=== PATIENT | male | born 1955 | race Caucasian/White ===

== ENCOUNTER → 2016-05-27 | Outpatient (CLI) | payer OTHER | END | disposition home or self-care (01) | LOC: SPEC 17:19 → EEVIPCON 17:19 | PROVIDERS: ATTEND Nurse Practitioner Family | DX: R07.9 Chest pain, unspecified (principal) | CPT/HCPCS: 36415; 84484 ==

== ENCOUNTER → 2017-08-12 | Outpatient (CLI) | payer OTHER | END | disposition home or self-care (01) | LOC: SPEC 14:36 | DX: R07.9 Chest pain, unspecified (principal); I11.0 Hypertensive heart disease with heart failure; I50.9 Heart failure, unspecified | CPT/HCPCS: 36415; 84484 ==

== ENCOUNTER → 2017-08-14 | Outpatient (CLI) | payer OTHER ==
[2017-08-14 14:52] LABS: BASO # 0.1 x10^3/uL (0.0-0.2); BASO % 1 % (0-3); EOS # 0.2 x10^3/uL (0.0-0.7); EOS % 3 % (0-3); HEMATOCRIT 45.9 % (39.0-53.0); HEMOGLOBIN 15.3 g/dL (13.0-17.5); LYMPH # 2.6 x10^3/uL (1.0-4.8); LYMPH % 30 % (24-48); MEAN CORPUSCULAR HEMOGLOBIN 28 pg (25-35); MEAN CORPUSCULAR HGB CONC 33 g/dL (31-37); MEAN CORPUSCULAR VOLUME 85 fL (79-100); MONO # 0.8 x10^3/uL (0.0-1.1); MONO % 9 % (0-9); NEUT # 5.1 x10^3uL (1.8-7.7); NEUT % 58 % (31-73); PLATELET COUNT 219 x10^3/uL (140-400); RED BLOOD COUNT 5.43 x10^6/uL (4.30-5.70); RED CELL DISTRIBUTION WIDTH 13.4 % (11.5-14.5); WHITE BLOOD COUNT 8.8 x10^3/uL (4.0-11.0)
[2017-08-14 15:01] LABS: ALBUMIN/GLOBULIN RATIO 1.1 (1.0-1.7); CALCIUM 8.9 mg/dL (8.5-10.1); CREATININE 1.3 mg/dL (0.7-1.3); GFR 55.9; POTASSIUM 4.8 mmol/L (3.5-5.1); TOTAL BILIRUBIN 0.4 mg/dL (0.2-1.0); TOTAL PROTEIN 7.5 g/dL (6.4-8.2)
== END | disposition home or self-care (01) ==
LOC: SPEC 14:40 → EEVIPCON 14:40
PROVIDERS: ATTEND Specialist
DX: R07.9 Chest pain, unspecified (principal)
CPT/HCPCS: 36415; 80053; 84484; 85025

== ENCOUNTER → 2017-08-15 | Outpatient (CLI) | payer OTHER | END | disposition home or self-care (01) | LOC: SPEC 00:10 → EEVIPCON 00:10 | PROVIDERS: ATTEND Specialist | DX: I25.9 Chronic ischemic heart disease, unspecified (principal); R07.9 Chest pain, unspecified | CPT/HCPCS: 36415; 84484 ==

== ENCOUNTER → 2018-07-14 | Outpatient (CLI) | payer OTHER ==
[~2018-07-14] MED LIST: ALPH600C5 PO; AMLO2.5T2 PO; ASPI325T8 PO; ATOR40TA59 PO; CALC200T3 PO; CLOP75TA57 PO; ISOS30TA4 PO; ISOS60TA2 PO; LOSA25TA PO; METO50TA6 PO; MONT10TA9 PO; NITR0.4T SL; RANO500T2 PO
== END | disposition home or self-care (01) ==
LOC: EEVIPCON 20:06 → SPEC 20:06
DX: R07.9 Chest pain, unspecified (principal)
CPT/HCPCS: 36415; 84484

== ENCOUNTER 2018-07-15 02:32 | Inpatient (IN) | payer OTHER ==
[~2018-07-15] VITALS: Ht 177.8 cm; Wt 104.9 kg
[2018-07-15] MEDS ORDERED: NITROGLYCERIN SUBLINGUAL 0.4 MG BOTTLE OF 25. SL ONE ×2 (02:46→03:00)
[2018-07-15] MEDS ORDERED: MORPHINE SULFATE 4 MG/ML DISP.SYRIN. ONE (02:46)
[2018-07-15] MEDS ORDERED: ASPIRIN 81 MG TAB.CHEW ONE (02:46)
[2018-07-15] MEDS ORDERED: ASPIRIN 81 MG TAB.CHEW PO ONE (03:00)
[2018-07-15] MEDS ORDERED: MORPHINE SULFATE 4 MG/ML DISP.SYRIN. IV ONE (03:00)
[2018-07-15 03:06] LABS: BASO # 0.1 x10^3/uL (0.0-0.2); BASO % 1 % (0-3); EOS # 0.3 x10^3/uL (0.0-0.7); EOS % 3 % (0-3); HEMATOCRIT 45.2 % (39.0-53.0); HEMOGLOBIN 15.1 g/dL (13.0-17.5); LYMPH # 3.2 x10^3/uL (1.0-4.8); LYMPH % 40 % (24-48); MEAN CORPUSCULAR HEMOGLOBIN 27 pg (25-35); MEAN CORPUSCULAR HGB CONC 33 g/dL (31-37); MEAN CORPUSCULAR VOLUME 82 fL (79-100); MONO # 0.9 x10^3/uL (0.0-1.1); MONO % 11 % (0-9); NEUT # 3.7 x10^3uL (1.8-7.7); NEUT % 45 % (31-73); PLATELET COUNT 214 x10^3/uL (140-400); RED BLOOD COUNT 5.52 x10^6/uL (4.30-5.70); RED CELL DISTRIBUTION WIDTH 14.2 % (11.5-14.5); WHITE BLOOD COUNT 8.2 x10^3/uL (4.0-11.0)
--- NOTE | 2018-07-15 03:07 | PHYS DOC ---
Adult General Chief Complaint Chief Complaint: CHEST PAIN HPI HPI 63-year-old male presents from correction with chest pain. He states that he has had 10 out of 10 central stabbing chest pain that radiates into his arm and to his jaw. This first started around 4 PM, 11 hours ago. He was not doing any physical exertion at the time. The patient took one nitroglycerin one hour ago and a second nitroglycerin 30 minutes ago. These have not helped his chest pain. Patient has a long cardiac history of several stents and CABG in 2013. He states this pain feels similar to his previous heart attacks. He denies fever or chills. Review of Systems Review of Systems Constitutional: Denies fever or chills [] Eyes: Denies change in visual acuity, redness, or eye pain [] HENT: Denies nasal congestion or sore throat [] Respiratory: Denies cough or shortness of breath [] Cardiovascular: No additional information not addressed in HPI [] GI: Denies abdominal pain, nausea, vomiting, bloody stools or diarrhea [] : Denies dysuria or hematuria [] Musculoskeletal: Denies back pain or joint pain [] Integument: Denies rash or skin lesions [] Neurologic: Denies headache, focal weakness or sensory changes [] Endocrine: Denies polyuria or polydipsia [] All other systems were reviewed and found to be within normal limits, except as documented in this note. Current Medications Current Medications Current Medications Medications (Trade) Dose Ordered Sig/Aneta Start Time Stop Time Status Last Admin Dose Admin Aspirin (Children'S Aspirin) 324 mg 1X ONCE 07/15/18 03:00 07/15/18 03:01 UNV Morphine Sulfate (Morphine 4mg Syringe) 4 mg 1X ONCE 07/15/18 03:00 07/15/18 03:01 UNV Nitroglycerin (Nitrostat) 0.4 mg 1X ONCE 07/15/18 03:00 07/15/18 03:01 UNV Physical Exam Physical Exam Constitutional: Well developed, well nourished, moderate acute distress, non- toxic appearance. [] HENT: Normocephalic, atraumatic, bilateral external ears normal, oropharynx moist, no oral exudates, nose normal. [] Eyes: PERRLA, EOMI, conjunctiva normal, no discharge. [] Neck: Normal range of motion, no tenderness, supple, no stridor. [] Cardiovascular:Heart rate regular rhythm, no murmur [] Lungs & Thorax: Bilateral breath sounds clear to auscultation [] Abdomen: Bowel sounds normal, soft, no tenderness, no masses, no pulsatile masses. [] Skin: Warm, dry, no erythema, no rash. [] Back: No tenderness, no CVA tenderness. [] Extremities: No tenderness, no cyanosis, no clubbing, ROM intact, no edema. [] Neurologic: Alert and oriented X 3, normal motor function, normal sensory function, no focal deficits noted. [] Psychologic: Affect normal, judgement normal, mood anxious. [] EKG EKG Sinus rhythm, rate 78, normal axis, no ST elevations or depressions.[] Radiology/Procedures Radiology/Procedures [] Course & Med Decision Making Course & Med Decision Making Pertinent Labs and Imaging studies reviewed. (See chart for details) Patient appeared be in significant discomfort on arrival. He was in shackles. The patient was given one sublingual nitroglycerin which did not help with his pain. He was then given 4 mg of morphine, then 75 g of fentanyl, then 2 mg of Ativan. He then was feeling much better. His pain had reduced by greater than 50%. We then placed Nitropaste on the patient. His labs are significant for an elevated troponin. His EKG is unremarkable. The patient has a history of coronary artery disease. He may or may not have an elevated troponin at baseline. I am unable to determine this definitively. A repeat troponin showed slight increase. I will admit the patient for further trending. I discussed the patient with Dr. Rivera and he has accepted the patient for admission. While the patient did appear to be in some distress, I am uncertain if all of his discomfort was real. He did ask for Dilaudid by name. Despite looking much more comfortable after 2 rounds of pain medication, he continued to ask for pain medication though he did admit he was feeling better and did not receive any further medication. He was very calm and talkative in the gurney. [] Dragon Disclaimer Dragon Disclaimer This electronic medical record was generated, in whole or in part, using a voice recognition dictation system. Departure Departure: Impression: Primary Impression: Chest pain due to CAD Disposition: ADMITTED INPATIENT Admitting Physician: Jorge Rivera Condition: STABLE Referrals: HUGH SUAREZ (PCP) DARLEEN GROSSMAN DO July 15, 2018 03:07
[2018-07-15 03:24] LABS: ALBUMIN 4.1 g/dL (3.4-5.0); ALBUMIN/GLOBULIN RATIO 1.1 (1.0-1.7); CALCIUM 9.2 mg/dL (8.5-10.1); CREATININE 1.2 mg/dL (0.7-1.3); GFR 61.1; POTASSIUM 4.3 mmol/L (3.5-5.1); TOTAL BILIRUBIN 0.2 mg/dL (0.2-1.0); TOTAL PROTEIN 7.8 g/dL (6.4-8.2)
--- NOTE | 2018-07-15 03:36 | RAD ---
PROCEDURE: CHEST AP ONLY CLINICAL INDICATION: Chest pain COMPARISON: None FINDINGS: Median sternotomy noted. No pneumothorax identified. Cardiac and mediastinal contours unremarkable. No pulmonary consolidation or acute airspace disease. No acute osseous abnormalities identified. Prominent bronchial markings are seen. IMPRESSION: Prominent bronchial markings may be secondary to bronchitis. Clinically correlate with symptoms. Electronically signed by: Fili Sharma DO (07/15/2018 3:33 AM) [facility]
[2018-07-15] MEDS ORDERED: NITROGLYCERIN OINT 1 GM PACKET. ONE (03:43)
[2018-07-15] MEDS ORDERED: NITROGLYCERIN OINT 1 GM PACKET. TP ONE (04:00)
[2018-07-15] MEDS ORDERED: NITROGLYCERIN SUBLINGUAL 0.4 MG BOTTLE OF 25. SL PRN ×2 (05:00→07:45)
[2018-07-15] MEDS ORDERED: ALPH600C5 PO (05:27)
[2018-07-15] MEDS ORDERED: CALC200T3 PO (05:28)
[2018-07-15 05:30] VITALS: BP 137/89
[2018-07-15] MEDS ORDERED: AMLO2.5T2 PO (05:33)
[2018-07-15] MEDS ORDERED: MONT10TA9 PO (05:33)
[2018-07-15] MEDS ORDERED: METO50TA6 PO (05:33)
[2018-07-15] MEDS ORDERED: ISOS30TA4 PO (05:33)
[2018-07-15] MEDS ORDERED: LOSA25TA PO (05:33)
[2018-07-15] MEDS ORDERED: ATOR40TA59 PO (05:33)
[2018-07-15] MEDS ORDERED: ASPI325T8 PO (05:33)
[2018-07-15] MEDS ORDERED: ISOS60TA2 PO (05:33)
[2018-07-15] MEDS ORDERED: NITR0.4T SL (05:33)
--- NOTE | 2018-07-15 06:27 | EKG ---
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
[2018-07-15] MEDS: METOPROLOL TART IMMED RELEASE 50 MG TABLET PO SCH (08:53)
[2018-07-15] MEDS: ISOSORBIDE MONONITRATE ER 30 MG TAB.ER.24H PO SCH (08:54)
[2018-07-15] MEDS: LOSARTAN 25 MG TABLET. PO SCH (08:54)
[2018-07-15] MEDS: amLODIPine BESYLATE 2.5 MG TABLET PO SCH (08:54)
[2018-07-15] MEDS: CALCIUM CARBONATE 500 MG TAB.CHEW PO SCH ×3 (08:55→21:32)
[2018-07-15] MEDS ORDERED: ASPIRIN 325 MG TABLET PO SCH (09:00)
[2018-07-15] MEDS ORDERED: ISOSORBIDE MONONITRATE PO SCH (09:00)
[2018-07-15] MEDS ORDERED: NON FORMULARY ITEM (Alpha Lipoic Acid 600 MG) PO SCH (09:00)
[2018-07-15 11:20] VITALS: BP 115/64
--- NOTE | 2018-07-15 14:03 | HP ---
ADMIT DATE: 07/15/2018 HISTORY OF PRESENT ILLNESS: The patient is a 63-year-old male patient who was brought to the Emergency Room of [facility] complaining of chest pain that he rated as 10/10, central stabbing chest pain that radiates to his arm and jaw and this first started around 4:00 p.m., 11 hours prior to arrival to the Emergency Room, he was not doing any physical exertion at the time. He took according to him about 5 nitroglycerin without much improvement, and when I asked him specifically, he described the pain as the spasms that lasts 24 seconds, comes and goes. He said he has some nausea, but denied any vomiting, denied any shortness of breath. Did complain that he was clammy and has pain in his back and his neck. He apparently was seen in the clinic [facility] the [facility] where he was [facility] and was given also aspirin to chew. He was evaluated extensively in the Emergency Room and has an EKG, which showed it was in sinus rhythm with a heart rate of 78, no ST segment elevation or depression. His first set of cardiac enzyme was slightly elevated at 0.142 and basically he was admitted for to do 2 more sets of cardiac enzymes, check fasting lipid profile and to consult the Cardiology team. PAST MEDICAL HISTORY: Significant for coronary artery disease, congestive heart failure, hypertension, hyperlipidemia, peripheral arterial disease, and osteoarthritis. PAST SURGICAL HISTORY: Significant for coronary artery bypass graft surgery, multiple cardiac catheterizations and he claims also had stents in his heart, although at least when the latest cardiac catheterization done by Dr. Romero in 07/2017, there was no mention of any stents. FAMILY HISTORY: Significant for hypertension. SOCIAL HISTORY: He is , has a son and daughter. He quit smoking 30 years ago. 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 ALLERGIES: He is allergic to PENICILLIN. MEDICATIONS: He is currently on following medications: He is on atorvastatin calcium 40 mg at bedtime, isosorbide mononitrate 60 mg daily, nitroglycerin 0.4 mg sublingually as needed, metoprolol tartrate 50 mg daily, amlodipine besylate 2.5 mg once a day, losartan potassium 25 mg daily, aspirin 325 mg daily, montelukast for Singulair one tablet once a day, calcium carbonate or Tums 3 times a day, alpha-lipoic acid 600 mg daily. REVIEW OF SYSTEMS: The patient denied any blurring of vision, cataract, glaucoma or macular degeneration. Denied any earache, tinnitus, or sensorineural deafness. Denied any nosebleeds, stuffy nose, or postnasal drip. Denied any sore throat, sore tongue, toothache, hoarseness of voice or difficulty swallowing. Denied any nausea, vomiting, diarrhea, or constipation. Denied any hematemesis, melena, or hematochezia. Denied any dysuria, frequency, or hematuria. Did complain obviously of chest pain that he describes as spasms that last only for 5 minutes and comes and goes and has been going on since 4 o'clock yesterday. PHYSICAL EXAMINATION: GENERAL: On examining him, he looked well and was clearly in no apparent respiratory distress. There is no pallor, jaundice, cyanosis, or thyromegaly. No jugular venous distension. No lower limb edema. VITAL SIGNS: His heart rate was 65, blood pressure was 137/89, temperature was 97.5, respiratory rate was 18, and oxygen saturation was 97%. HEAD, EYES, EARS, NOSE, AND THROAT: Showed normocephalic, atraumatic. NECK: Supple. HEART: Showed normal first and second heart sounds. No gallop, rub, or murmur. CHEST: Clear to auscultation. No crepitation or rhonchi. ABDOMEN: Distended, soft, nontender. NEUROLOGIC: He was awake, alert, responding appropriately. All cranial nerves intact. EXTREMITIES: He moves extremities without difficulty; however, he has severe claudication and he can only walk for about 25 feet. LABORATORY DATA: Showed a white cell count of 8200, hemoglobin 15, hematocrit 45, MCV 82, and platelet count 214,000 with normal manual differential. Serum sodium was 142, potassium 4.3, chloride 105, bicarbonate 25, anion gap of 12, BUN 18, creatinine 1.2, estimated GFR was 61 mL per minute. Her glucose was 96. Calcium was 9.2. Total bilirubin, AST, ALT, alkaline phosphatase were normal. His total protein was 7.8, albumin was 4.1. His first troponin was 0.142, second troponin was 0.139 and third was 0.133. ASSESSMENT AND PLAN: My plan is to continue all his current medication. We will obviously consult the Cardiology team. The patient has already had a cardiac catheterization done by Dr. Romero on 08/14/2017, which showed that the patient has severe diffuse jamul vessel coronary artery disease and small vessel coronary artery disease. He has no significant graft disease. The left ventricular systolic function is preserved. There is severe disease in the distal aorta and iliac and common femorals. At that time, Dr. Romero recommended medical treatment of his cardiac situation and to consult the Vascular Surgery about severe peripheral vascular disease. In fact, he was seen at the same admission in [facility] by the vascular surgeon, ____, and at that time, his lower extremities are warm. There is no tissue breakdown and again he is asymptomatic, and at that time, the vascular surgeon did not recommend any further arterial intervention, but recommended that he follow up with them in 3 months' time. MELISSA VELAZQUEZ MD DR: TRINO/jessica JOB#: [id number] / [id number]
[2018-07-15] MEDS ORDERED: ACETAMINOPHEN 325 MG TABLET PO PRN (15:00)
[2018-07-15 16:08] VITALS: BP 122/78
--- NOTE | 2018-07-15 16:42 | PDOC ---
PROVIDER NOTE PROVIDER NOTE PROVIDER NOTE CARDIOLOGY CONSULTATION NOTE: Reason for consultation: Chest pain, elevated troponin. HPI: 63 y.o male with prior cad presenting with chest pain for several hours. He was at baseline and while seated had some chest pain. CP did not improve with NTG. Pain lasting several seconds and resolves. No associated dyspnea, orthopnea or PND. Reports compliance with meds at nursing home. Recently admitted to OSH and advised that he needs vascular surgery. We do not have records from OSH in April but patient reports that he had a heart cath, advised that he has significant CMP and needs to have aorto-iliac disease addressed. Patient at baseline at the nursing home is quite sedentary due to knee and shoulder issues. He was quite adamant about requesting narcotics and stated that he would like morphine for his pain. His pain again is sharp in nature and not consistent with cardiac issues. Patient also reported that he has always had a positive troponin. PMhx: 1. CAD s/p CABG (ABDI to LAD, SVG to RCA, SVG to OM1/OM2), last cath in 2017. 2. PAD with chronic right iliac occlusion - 3. HTN 4. Dyslipidemia Sochx: No alcohol, tob or illicits. ROS: As noted above in HPI. ALL: PCN Current Meds: Atorvastatin 40mg daily Metoprolol tartrate 50mg daily Amlodipine 2.5mg daily Imdur 60mg daily Losartan 25mg daily Physical Exam: Constitutional: Well developed, well nourished, no acute distress, non-toxic appearance, positive interaction, playful. HENT: Normocephalic, atraumatic, bilateral external ears normal, oropharynx moist, no oral exudates, nose normal. Eyes: PERLL, EOMI, conjunctiva normal, no discharge. Neck: Normal range of motion, no tenderness, supple, no stridor. Cardiovascular: Normal heart rate, normal rhythm, no murmurs, no rubs, no gallops. Thorax and Lungs: Normal breath sounds, no respiratory distress, no wheezing, no chest tenderness, no retractions, no accessory muscle use. Abdomen: Bowel sounds normal, soft, no tenderness, no masses, no pulsatile masses. Skin: Warm, dry, no erythema, no rash. Back: No tenderness, no CVA tenderness. Extremeties: Intact distal pulses, no tenderness, no cyanosis, no clubbing, ROM intact, no edema. Musculoskeletal: Good ROM in all major joints, no tenderness to palpation or major deformities noted. Neurologic: Alert and oriented X 3, normal motor function, normal sensory function, no focal deficits noted. Psychologic: Affect normal, judgement normal, mood normal. Labs: Troponin minimally elevated Cr/Hgb/Plts wnl. Impression: 1. Ischemic CMP 2. Elevated troponin - likely chronic. No obvious other causes such as anemia, HTN, tachy etc. 3. PAD - awaiting surgical intervention at 4. HTN 5. Dyslipidemia. Plan: 1. I tried to explain to the patient that simply giving him narcotics and sedating him will not be helpful. He does not appear to be distressed and was sitting in the bed drinking coffee. 2. Will start Renexa 500mg bid and Plavix for chronic troponin elevation and in the event this is microvascular angina. 3. Await OSH records. 4. Will give one dose of Lovenox until outside records available regarding cardiac anatomy. Thanks. OLI MUJICA MD July 15, 2018 16:42
[2018-07-15] MEDS ORDERED: ENOXAPARIN ** NOTE DOSE ** SYRINGE SQ ONE (17:00)
[2018-07-15] MEDS ORDERED: CLOPIDOGREL BISULFATE 75 MG TABLET PO ONE (17:00)
[2018-07-15] MEDS: HYDROcodone/APAP 5/325MG 1 TAB TABLET PO PRN ×2 (17:26→23:26)
[2018-07-15 19:13] VITALS: BP 103/60
[2018-07-15] MEDS ORDERED: MONTELUKAST 10 MG TABLET. PO SCH (21:00)
[2018-07-15] MEDS ORDERED: ATORVASTATIN CALCIUM 20 MG TABLET PO SCH (21:00)
[2018-07-15] MEDS: RANOLAZINE 500 MG TAB.ER.12H PO SCH (21:31)
[2018-07-15] MEDS: ZOLPIDEM 5 MG TABLET. PO PRN ×2 (21:32→23:26)
[2018-07-15 23:42] VITALS: BP 98/61
[2018-07-16 05:31] VITALS: BP 125/73
[2018-07-16] MEDS ORDERED: CLOPIDOGREL BISULFATE 75 MG TABLET PO SCH (08:00)
[2018-07-16] MEDS ORDERED: ASPIRIN 81 MG TAB.CHEW PO SCH (08:00)
[2018-07-16] MEDS: CALCIUM CARBONATE 500 MG TAB.CHEW PO SCH ×2 (09:00→14:00)
[2018-07-16] MEDS: amLODIPine BESYLATE 2.5 MG TABLET PO SCH (09:24)
[2018-07-16] MEDS: ISOSORBIDE MONONITRATE ER 30 MG TAB.ER.24H PO SCH (09:25)
[2018-07-16] MEDS: METOPROLOL TART IMMED RELEASE 50 MG TABLET PO SCH (09:25)
[2018-07-16] MEDS: RANOLAZINE 500 MG TAB.ER.12H PO SCH (09:26)
[2018-07-16] MEDS: LOSARTAN 25 MG TABLET. PO SCH (09:26)
[2018-07-16 10:54] VITALS: BP 123/74
[2018-07-16] MEDS ORDERED: RANO500T2 PO (13:21)
[2018-07-16] MEDS ORDERED: CLOP75TA57 PO (13:21)
--- NOTE | 2018-07-16 23:11 | DS ---
DATE OF DISCHARGE: 07/16/2018 HOSPITAL COURSE: The patient is a 63-year-old male patient, an inmate, who was brought to the Emergency Room of [facility] with complaints of recurrent episode of chest pain, described as spasms that last a few seconds. The pain did not improve with nitroglycerin. He denied any dyspnea, orthopnea, paroxysmal nocturnal dyspnea. He did report compliance with medications at present recently admitted. He was recently admitted to [facility] and the Cardiology there Dr. Anjel Bullock did not electro cardiac catheterize him again as he is known to have severe yocha dehe vessel coronary artery disease and his grafts are patent. He has never been chest pain free for the few years and at that time he did not recommend repeating cardiac catheterization. His medical treatment was optimized and he scheduled him for treatment of his peripheral vascular disease. The patient claims that he is scheduled for surgery at [facility]. I spoke with the Vascular Surgery Center there and the only time that he was scheduled in 10/2017 and he never showed up. Dr. Bullock said that he has scheduled him multiple times to come to his office to do the surgery for his peripheral vascular disease and he never showed up. He was seen yesterday by Dr. Weber and again he did not feel that he needs any further intervention. He did optimize his treatment and start him on Plavix and Ranexa. When I confronted him with all the facts, he became very aggressive, started insulting and wanted to be discharged back to his group home. PHYSICAL EXAMINATION: GENERAL: When I saw him today, he looked well and was clearly in no apparent respiratory distress. There is no pallor, jaundice or cyanosis. No lymphadenopathy, no thyromegaly. No jugular venous distension. No lower limb edema. VITAL SIGNS: His heart rate was 66, blood pressure was 123/74, temperature was 98.2, respiratory rate was 18 and oxygen saturation was 96%. HEENT: Examination of the head, eyes, ears, nose and throat showed normocephalic, atraumatic. NECK: Supple. HEART: Showed normal first and second heart sounds. No gallop, rub or murmur. CHEST: Clear to auscultation. No crepitation or rhonchi. ABDOMEN: Distended, soft, nontender. No guarding or rigidity. No organomegaly. All hernial orifices are intact. Bowel sounds normal. NEUROLOGIC: He is awake, alert, responding appropriately. All his cranial nerves are intact. EXTREMITIES: She moves extremities without difficulty, ambulates without assistance or assistive devices. LABORATORY DATA: His lab work showed a white cell count of 8200, hemoglobin 15, hematocrit 45, MCV 82 and platelet count 214,000 with normal manual differential. His serum sodium was 142, potassium 4.3, chloride 105, bicarbonate 25, anion gap of 12, BUN 18, creatinine 1.2. Estimated GFR was 61 mL per minute. His glucose was 96, calcium was 9.2. Total bilirubin, AST, ALT, alkaline phosphatase were normal. He has had 3 sets of troponin, slightly elevated. Apparently, he has chronic elevation of his troponin. His total protein was 7.8, albumin was 4.1. DISCHARGE MEDICATIONS: He was discharged back to group home to continue on Plavix 75 mg once a day, Ranexa 500 mg twice a day, alpha-lipoic acid 600 mg once a day, amlodipine besylate 2.5 mg once a day, aspirin 325 mg once a day, atorvastatin calcium 40 mg at bedtime, calcium carbonate 200 mg 3 times a day, isosorbide mononitrate 60 mg once a day, losartan potassium 25 mg daily, metoprolol tartrate 50 mg once a day, montelukast sodium 10 mg daily, and nitroglycerin 0.4 mg sublingually as needed. FINAL DISCHARGE DIAGNOSES: 1. Severe yocha dehe vessel coronary artery disease with patent grafts. 2. Severe hypertension. 3. Hyperlipidemia. 4. Congestive heart failure. 5. Peripheral arterial disease. 6. Osteoarthritis. DISCHARGE PLAN: The patient was told to make an appointment with Dr. Bullock if he wants his vascular surgery treated. He currently does not have any impending ischemia. His feet are warm to touch and there is no evidence that he has any impending ischemia. For the time being, he wants to pursue this surgical treatment that he describes as barbaric and he can call Dr. Bullock at the #[phone]. MELISSA VELAZQUEZ MD DR: TRINO/jessica JOB#: [id number] / [id number]
== END 2018-07-16 14:45 | disposition home or self-care (01) | DRG 303 ==
LOC: EEVIPCON 02:32 → ER 02:32 → 1 SOUTH 04:30
PROVIDERS: ADMIT Internal Medicine; ATTEND Internal Medicine
DX: I25.10 Atherosclerotic heart disease of native coronary artery without angina pectoris (principal); E78.5 Hyperlipidemia, unspecified; I11.0 Hypertensive heart disease with heart failure; I25.2 Old myocardial infarction; I25.5 Ischemic cardiomyopathy; I50.9 Heart failure, unspecified; I73.9 Peripheral vascular disease, unspecified; M19.90 Unspecified osteoarthritis, unspecified site; Z82.49 Family history of ischemic heart disease and other diseases of the circulatory system; Z87.891 Personal history of nicotine dependence; Z95.1 Presence of aortocoronary bypass graft; Z88.0 Allergy status to penicillin
CPT/HCPCS: 36415; 71045; 80053; 84484; 85025; 87641; 93005; 96374; 96375; J1650; J2060; J2270; J3010; 99285-25

== ENCOUNTER → 2018-07-18 | Outpatient (CLI) | payer OTHER ==
[2018-07-16 10:54] VITALS: BP 123/74
== END | disposition home or self-care (01) ==
LOC: SPEC 13:50
DX: R07.9 Chest pain, unspecified (principal)
CPT/HCPCS: 36415; 84484

== ENCOUNTER → 2018-07-27 | Outpatient (CLI) | payer OTHER ==
[2018-07-16 10:54] VITALS: BP 123/74
== END | disposition home or self-care (01) ==
LOC: EEVIPCON 13:27 → SPEC 13:27
PROVIDERS: ATTEND General Practice
DX: R07.9 Chest pain, unspecified (principal)
CPT/HCPCS: 36415; 84484

== ENCOUNTER → 2018-08-08 | Outpatient (CLI) | payer OTHER ==
[2018-07-16 10:54] VITALS: BP 123/74
[~2018-08-08] MED LIST changes: +MONT10TA80 PO; -MONT10TA9 PO
== END | disposition home or self-care (01) ==
LOC: SPEC 17:15 → EEVIPCON 17:15
PROVIDERS: ATTEND Nurse Practitioner Family
DX: R07.9 Chest pain, unspecified (principal)
CPT/HCPCS: 36415; 84484

== ENCOUNTER → 2018-08-13 | Outpatient (CLI) | payer OTHER ==
[2018-07-16 10:54] VITALS: BP 123/74
== END | disposition home or self-care (01) ==
LOC: SPEC 10:14 → EEVIPCON 10:14
PROVIDERS: ATTEND Family Medicine
DX: E78.49 Other hyperlipidemia (principal)
CPT/HCPCS: 36415; 84484

== ENCOUNTER → 2018-08-13 | Outpatient (CLI) | payer OTHER ==
[2018-07-16 10:54] VITALS: BP 123/74
== END | disposition home or self-care (01) ==
LOC: SPEC 21:45
PROVIDERS: ATTEND Family Medicine
DX: R07.9 Chest pain, unspecified (principal)
CPT/HCPCS: 36415; 84484

== ENCOUNTER → 2018-08-14 | Outpatient (CLI) | payer OTHER ==
[2018-07-16 10:54] VITALS: BP 123/74
== END | disposition home or self-care (01) ==
LOC: EEVIPCON 11:24 → SPEC 11:24
PROVIDERS: ATTEND Family Medicine
DX: R07.9 Chest pain, unspecified (principal)
CPT/HCPCS: 36415; 84484

== ENCOUNTER → 2018-08-14 | Outpatient (CLI) | payer OTHER ==
[2018-07-16 10:54] VITALS: BP 123/74
== END | disposition home or self-care (01) ==
LOC: SPEC 17:00
PROVIDERS: ATTEND Family Medicine
DX: R07.9 Chest pain, unspecified (principal)
CPT/HCPCS: 36415; 84484

== ENCOUNTER → 2018-08-15 | Outpatient (CLI) | payer OTHER ==
[2018-07-16 10:54] VITALS: BP 123/74
== END | disposition home or self-care (01) ==
LOC: EEVIPCON 21:24 → SPEC 21:24
PROVIDERS: ATTEND Family Medicine
DX: R07.9 Chest pain, unspecified (principal)
CPT/HCPCS: 36415; 84484

== ENCOUNTER → 2020-02-05 | Outpatient (CLI) | payer OTHER ==
[~2020-02-05] MED LIST changes: -NITR0.4T SL; +NITR0.4T24 SL
== END ==
LOC: LAB 07:11
PROVIDERS: ATTEND Family Medicine
DX: R07.9 Chest pain, unspecified (principal)
CPT/HCPCS: 36415; 84484

== ENCOUNTER → 2020-02-06 | Outpatient (CLI) | payer OTHER | LOC: LAB 07:53 | PROVIDERS: ATTEND Family Medicine | DX: R07.9 Chest pain, unspecified (principal) | CPT/HCPCS: 36415; 84484 ==

== ENCOUNTER → 2020-02-09 | Outpatient (CLI) | payer OTHER | LOC: SPEC 01:34 | PROVIDERS: ATTEND Family Medicine | DX: R79.89 Other specified abnormal findings of blood chemistry (principal) | CPT/HCPCS: 36415; 84484 ==

== ENCOUNTER → 2020-02-11 | Outpatient (CLI) | payer OTHER | LOC: LAB 08:09 | PROVIDERS: ATTEND Family Medicine | DX: R07.9 Chest pain, unspecified (principal) | CPT/HCPCS: 36415; 84484 ==

== ENCOUNTER → 2020-02-11 | Outpatient (CLI) | payer OTHER | LOC: SPEC 02:09 | PROVIDERS: ATTEND Family Medicine | DX: R07.9 Chest pain, unspecified (principal) | CPT/HCPCS: 36415; 84484 ==

== ENCOUNTER → 2020-05-13 | Outpatient (CLI) | payer OTHER ==
[~2020-05-13] MED LIST changes: -ISOS30TA4 PO; +ISOS30TA68 PO; -ISOS60TA2 PO; +ISOS60TA55 PO
== END ==
LOC: EEVIPCON 12:10 → SPEC 12:10
PROVIDERS: ATTEND Emergency Medicine
DX: R07.9 Chest pain, unspecified (principal); R79.89 Other specified abnormal findings of blood chemistry
CPT/HCPCS: 36415; 84484